=== PATIENT | male | born 1965 | race Caucasian/White ===

== ENCOUNTER 2016-07-13 23:28 | Emergency (ER) | payer BC ==
[~2016-07-13] VITALS: Ht 162.6 cm; Wt 90.7 kg
[~2016-07-13 23:28] MED LIST: DOXY100T2 PO; HYDR-3812 PO
--- OUTSIDE RECORDS SUMMARY | 2016-07-13 23:35 | XMS REPORT | Continuity of Care Document ---
Author Author [facility] Organization [facility] Address Unknown Phone Unavailable Allergies Active Description Code Type Severity Reaction Onset Reported/Identified Relationship to Patient Clinical Status Yes No Known Drug Allergies [id number] Drug Allergy Unknown N/ A 07/09/2015 Medications Problems Date Dx Coded Attending Type Code Diagnosis Diagnosed By 07/10/2015 MARIO GARZA, CYNTHIA Xie Ot F17.210 NICOTINE DEPENDENCE, CIGARETTES, UNCOMPL 07/10/2015 CYNTHIA MARTIN MD Ot L03.115 CELLULITIS OF RIGHT LOWER LIMB 07/10/2015 CYNTHIA MARTIN MD Ot S89.91XA UNSPECIFIED INJURY OF RIGHT LOWER LEG, I 07/10/2015 MARIO GARZA, CYNTHIA Xie Ot V58.4XXA PRSN BRD/JULY PK-UP/VAN INJURED IN NONCL 07/10/2015 CYNTHIA MARTIN MD Ot Y99.8 OTHER EXTERNAL CAUSE STATUS 07/10/2015 CYNTHIA MARTIN MD Ot Z23 ENCOUNTER FOR IMMUNIZATION Procedures Results Encounters ACCT No. Visit Date/Time Discharge Status Pt. Type Provider Facility Loc./Unit Complaint [id number] 07/09/2015 08:59:00 2015 12:12:00 DIS Emergency CYNTHIA MARTIN MD [facility] ER [id number] 07/13/2016 23:31:00 ACT Emergency HANK WOLFE DO [facility] ER CHEST PAIN
--- NOTE | 2016-07-13 23:40 | ED Chest Pain ---
General Stated Complaint: CHEST PAIN Source: patient, RN notes reviewed Exam Limitations: no limitations History of Present Illness Time seen by provider: 23:39 Initial Comments Substernal chest pain radiating to BUE x 2 hours. (+) nausea. Tried Gas X & Ibuprofen 800 mg s/ relief. Also took one baby ASA. Timing/Duration: 1-3 hours Severity/Quality: moderate (7/10), ingestion (???), pressure Location: substernal Radiation: arms Activities at Onset: none Prior CP/Workup: no prior chest pain, no prior cardiac workup Modifying Factors: improves with other (nothing makes the pain better, or worse.) ASA po BOARD LAYER: Yes NTG SL BOARD LAYER: No Associated Symptoms: No fever/chills, heartburn (???), nausea/vomiting ((+) nausea but no vomiting), No shortness of breath Allergies and Home Medications Allergies Coded Allergies: No Known Drug Allergies (Unverified , 07/09/15) Home Medications Ibuprofen 800 Mg Tablet, 800 MG PO DAILY, (Reported) Review of Systems Cardiovascular: See HPI, Chest Pain Gastrointestinal: See HPI, Nausea All Other Systems Reviewed Negative Unless Noted: Yes (Negative excepted noted.) Past Ybprlbp-Wtmndb-Pcdhba Hx Patient Social History Recent Foreign Travel: No Contact w/Someone Who Travel: No Surgeries HX Surgeries: Yes (c spine, shoulder) Surgeries: Appendectomy, Orthopedic Respiratory Hx Respiratory Disorders: No Cardiovascular Hx Cardiac Disorders: Yes Cardiac Disorders: High Cholesterol Neurological Hx Neurological Disorders: No Genitourinary Hx Genitourinary Disorders: No Gastrointestinal Hx Gastrointestinal Disorders: No Musculoskeletal Hx Musculoskeletal Disorders: No Endocrine Hx Endocrine Disorders: No Cancer Hx Cancer: No Psychosocial Hx Psychiatric Problems: No Physical Exam Vital Signs Capillary Refill : General Appearance: No Apparent Distress, WD/WN, Obese Respiratory: No Respiratory Distress Cardiovascular: Regular Rate, Rhythm Gastrointestinal: Tenderness (mild; epigastric) Rectal: Deferred Neurologic/Psychiatric: Alert, Oriented x3, No Motor/Sensory Deficits Skin: Warm/Dry Progress/Results/Core Measures Results/Orders Lab Results Laboratory Tests Test 07/13/16 23:37 Range/Units White Blood Count 8.5 4.3-11.0 10^3/uL Red Blood Count 5.12 4.35-5.85 10^6/uL Hemoglobin 16.2 13.3-17.7 G/DL Hematocrit 45 40-54 % Mean Corpuscular Volume 88 80-99 FL Mean Corpuscular Hemoglobin 32 25-34 PG Mean Corpuscular Hemoglobin Concent 36 32-36 G/DL Red Cell Distribution Width 12.5 10.0-14.5 % Platelet Count 280 130-400 10^3/uL Mean Platelet Volume 9.4 7.4-10.4 FL Neutrophils (%) (Auto) 66 42-75 % Lymphocytes (%) (Auto) 25 12-44 % Monocytes (%) (Auto) 7 0-12 % Eosinophils (%) (Auto) 2 0-10 % Basophils (%) (Auto) 0 0-10 % Neutrophils # (Auto) 5.7 1.8-7.8 X 10^3 Lymphocytes # (Auto) 2.1 1.0-4.0 X 10^3 Monocytes # (Auto) 0.6 0.0-1.0 X 10^3 Eosinophils # (Auto) 0.1 0.0-0.3 10^3/uL Basophils # (Auto) 0.0 0.0-0.1 10^3/uL D-Dimer 0.34 0.00-0.49 UG/ML Sodium Level 137 135-145 MMOL/L Potassium Level 3.7 3.6-5.0 MMOL/L Chloride Level 103 98-107 MMOL/L Carbon Dioxide Level 21 21-32 MMOL/L Anion Gap 13 5-14 MMOL/L Blood Urea Nitrogen 15 7-18 MG/DL Creatinine 0.93 0.60-1.30 MG/DL Estimat Glomerular Filtration Rate > 60 BUN/Creatinine Ratio 16 Glucose Level 119 H 70-105 MG/DL Calcium Level 9.2 8.5-10.1 MG/DL Total Bilirubin 0.4 0.1-1.0 MG/DL Aspartate Amino Transf (AST/SGOT) 34 5-34 U/L Alanine Aminotransferase (ALT/SGPT) 48 0-55 U/L Alkaline Phosphatase 52 40-136 U/L Troponin I < 0.30 <0.30 NG/ML Total Protein 7.1 6.4-8.2 G/DL Albumin 4.3 3.2-4.5 G/DL Lipase 38 8-78 U/L Serum Alcohol 124 H <10 MG/DL My Orders Orders - HANK WOLFE DO Saline Lock/Iv-Start (07/13/16 23:41) Ekg Tracing (07/13/16 23:41) Alcohol (07/13/16 23:41) Cbc With Automated Diff (07/13/16 23:41) Comprehensive Metabolic Panel (07/13/16 23:41) Lipase (07/13/16 23:41) Chest 1 View, Ap/Pa Only (07/13/16 23:41) Fibrin Degradation Products (07/13/16 23:41) Lidocaine 2% Viscous 15 Ml (Xylocaine Vi (07/13/16 23:45) Antacid Suspension (Mylanta Suspension (07/13/16 23:45) Famotidine Injection (Pepcid Injection) (07/13/16 23:44) Troponin I (07/14/16 00:17) Iv Push Instructional Interventionist Ed (07/13/16 ) Medications Given in ED Vital Signs/I&O ECG Initial ECG Impression Date: Jul 13, 2016 Initial ECG Impression Time: 23:37 Initial ECG Rate: 81 Initial ECG Rhythm: Normal Sinus Initial ECG Intervals: Normal Initial ECG Impression: Normal Initial ECG Comparisson: No Previous ECG Available Diagnostic Imaging Diagonstic Imaging: Xray Plain Films/CT/US/NM/MRI: chest (nothing acute) Departure Impression Impression: Primary Impression: Non-cardiac chest pain Additional Impressions: Alcohol intoxication Tobacco abuse Disposition: 01 HOME, SELF-CARE Condition: Improved Departure-Patient Inst. Decision time for Depature: 01:14 Referrals: SWATHI SAUCEDA DO (PCP/Family) Primary Care Physician Patient Instructions: Chest Pain That Is Not Caused by the Heart (DC) Add. Discharge Instructions: RECOMMEND FOLLOW UP WITH YOUR PCP IF CONTINUED PROBLEMS. MAY WANT TO GET YOUR SET UP FOR A STRESS TEST FOR FURTHER EVALUATION. NEED TO STOP SMOKING. HANK WOLFE DO Jul 13, 2016 23:40
[2016-07-13] MEDS ORDERED: FAMOTIDINE 20MG/2ML IV (PEPCID) IV STA (23:44)
[2016-07-13] MEDS ORDERED: LIDOCAINE 2% VISCOUS 15 ML UDC PO ONE (23:45)
[2016-07-13] MEDS ORDERED: ANTACID SUSP 30 ML UDC (MYLANTA) PO ONE (23:45)
[2016-07-13 23:51] LABS: BASOPHILS % (AUTO) 0 % (0-10); EOSINOPHILS # (AUTO) 0.1 10^3/uL (0.0-0.3); EOSINOPHILS % (AUTO) 2 % (0-10); LYMPHOCYTES # (AUTO) 2.1 X 10^3 (1.0-4.0); LYMPHOCYTES % (AUTO) 25 % (12-44); MEAN CORPUSCULAR HEMOGLOBIN 32 PG (25-34); MEAN CORPUSCULAR HGB CONC 36 G/DL (32-36); MEAN CORPUSCULAR VOLUME 88 FL (80-99); MEAN PLATELET VOLUME 9.4 FL (7.4-10.4); MONOCYTES # (AUTO) 0.6 X 10^3 (0.0-1.0); MONOCYTES % (AUTO) 7 % (0-12); NEUTROPHILS # (AUTO) 5.7 X 10^3 (1.8-7.8); NEUTROPHILS % (AUTO) 66 % (42-75); PLATELET COUNT 280 10^3/uL (130-400); RED BLOOD COUNT 5.12 10^6/uL (4.35-5.85); RED CELL DISTRIBUTION WIDTH 12.5 % (10.0-14.5); WHITE BLOOD COUNT 8.5 10^3/uL (4.3-11.0)
[2016-07-14 00:09] LABS: ALANINE AMINOTRANSFERASE 48 U/L (0-55); ALBUMIN 4.3 G/DL (3.2-4.5); ALCOHOL 124 MG/DL (<10); ANION GAP 13 MMOL/L (5-14); ASPARTATE AMINO TRANSFERASE 34 U/L (5-34); BILIRUBIN,TOTAL 0.4 MG/DL (0.1-1.0); BLOOD UREA NITROGEN 15 MG/DL (7-18); BUN/CREATININE RATIO 16; CALCIUM 9.2 MG/DL (8.5-10.1); CARBON DIOXIDE 21 MMOL/L (21-32); CHLORIDE 103 MMOL/L (98-107); CREATININE SERUM 0.93 MG/DL (0.60-1.30); GFR ESTIMATED > 60; GLUCOSE 119 MG/DL (70-105); LIPASE 38 U/L (8-78); POTASSIUM 3.7 MMOL/L (3.6-5.0); SODIUM 137 MMOL/L (135-145); TOTAL PROTEIN 7.1 G/DL (6.4-8.2)
[2016-07-14] MEDS ORDERED: IBUP-1780 PO (00:13)
[2016-07-14 01:26] VITALS: BP 140/95
--- NOTE | 2016-07-14 08:13 | Diagnostic Imaging Report ---
INDICATION: Cough and congestion. Comparison made with prior examination from 12/24/06. FINDINGS: The heart size is normal. There appears to be a minimal infiltrate in medial aspect of the right lung base. There is no pleural effusion or pneumothorax. The mediastinum is unremarkable. IMPRESSION: Minimal infiltrate in medial aspect of the right lung base otherwise unremarkable. Dictated by: Dictated on workstation # [id number]
== END 2016-07-14 01:26 | disposition home or self-care (01) ==
LOC: EDUNIT# 23:28 → ER 23:31
DX: R07.89 Other chest pain (principal); F10.129 Alcohol abuse with intoxication, unspecified; Y90.6 Blood alcohol level of 120-199 mg/100 ml
CPT/HCPCS: 36415; 71010; 80053; 80320; 83690; 84484; 85025; 85379; 93005; 96374

== ENCOUNTER → 2019-01-15 | Outpatient (CLI) | payer BC ==
[~2019-01-15] MED LIST changes: +ACHD5005 PO; -HYDR-3812 PO; +IBUP-1780 PO
--- NOTE | 2019-01-15 16:02 | Diagnostic Imaging Report ---
INDICATION: Increasing pain in the left hand. Time of exam 3:24 p.m. FINDINGS: Three views of the left hand were obtained. There is a punctate opacity in the soft tissues of the thumb at the level of the distal phalanx. This is consistent with a foreign body. Metacarpals appear intact. The phalanges are intact. The carpus is unremarkable. No fractures are seen. IMPRESSION: Punctate foreign body in the soft tissues of the thumb. No acute bony abnormality is detected. Dictated by: Dictated on workstation # [id number]
== END ==
LOC: RAD 15:10
PROVIDERS: ATTEND Family Medicine
DX: M79.645 Pain in left finger(s) (principal); M79.642 Pain in left hand
CPT/HCPCS: 73130

== ENCOUNTER 2019-05-11 12:30 | Outpatient (CLI) | payer BC ==
[~2019-05-11] VITALS: Ht 162.6 cm; Wt 81.8 kg
== END 2019-05-11 13:00 | disposition home or self-care (01) ==
LOC: PREOP 12:30
PROVIDERS: ATTEND Specialist
DX: Z01.818 Encounter for other preprocedural examination (principal)

== ENCOUNTER 2019-05-14 05:53 | Day surgery (SDC) | payer BC ==
[~2019-05-14] VITALS: Ht 162.6 cm; Wt 81.8 kg
[2019-05-14] MEDS ORDERED: POVIDONE (BETADINE) OPHTH SOLN 5% 30 ML OP ONE (06:15)
[2019-05-14] MEDS ORDERED: MOXIFLOXACIN OPHTH SOLN 5 MG/ML 0.3 ML SYRINGE OP ONE (06:15)
[2019-05-14] MEDS ORDERED: TIMOLOL MALEATE 0.5% 5 ML (TIMOPTIC) BTL OU PRN (06:15)
[2019-05-14] MEDS ORDERED: LIDOCAINE PF 1% 2 ML VIAL IR PRN (06:15)
[2019-05-14] MEDS: TETRACAINE 0.5% OPHTH SOLN 4 ML BTL (SINGLE DOSE ONLY) OU PRN ×4 (06:16→06:42)
[2019-05-14 06:21] VITALS: BP 130/91
[2019-05-14] MEDS: PHENYLEPHRINE 10% OPHTH (NEO-SYN) 5 ML BTL OU SCH ×3 (06:30→06:42)
[2019-05-14] MEDS: CYCLOPENTOLATE 1% (CYCLOGYL) 2 ML DROPS OP SCH ×3 (06:30→06:42)
[2019-05-14] MEDS ORDERED: MIDAZOLAM 2 MG/2 ML (VERSED) VIAL ONE (06:48)
[2019-05-14 07:21] VITALS: BP 141/99
[2019-05-14] MEDS ORDERED: acetaZOLAMIDE ER 500 MG CAP (DIAMOX SEQUELS) PO ONE (08:00)
--- NOTE | 2019-05-14 09:36 | Ophthalmologist Pre-Op Note ---
Pre-Operative Progress Note H&P Reviewed The H&P was reviewed, patient examined and no changes noted. Date H&P Reviewed: May 14, 2019 Time H&P Reviewed: 06:55 Pre-Op Dx Cataract, Left Eye RADHA OHARA MD May 14, 2019 09:36
--- NOTE | 2019-05-14 09:36 | Ophthalmology Operative Report ---
Cataract removal/placement IOL PREOPERATIVE DIAGNOSIS: Cataract Left Eye POSTOPERATIVE DIAGNOSIS: Cataract Left Eye PROCEDURE: Cataract removal and placement of posterior chamber implant, left eye SURGEON: John Ohara ANESTHESIA: Topical with sedation COMPLICATIONS: None ESTIMATED BLOOD LOSS: Minimal DESCRIPTION OF PROCEDURE: After proper informed consent was obtained, the patient, a 53 male, was taken to the Operating Room and the left eye was anesthetized with tetracaine. The left eye was then prepped and draped in the usual manner. A wire lid speculum was placed. A paracentesis was made at the left hand position. Preservative free lidocaine was injected into the anterior chamber followed by viscoelastic. A clear corneal incision was made in the temporal position. A capsulorrhexis was preformed and the central nuclear and cortical material were removed. The posterior capsule was polished and an Pramod 21.5 AU00T0 was placed into the capsular bag. The residual viscoelastic was aspirated and balanced saline solution was injected into the anterior chamber. Moxifloxacin was injected into the anterior chamber. The wound was checked and found to be water tight. The patient tolerated the procedure well without complications. JOHN OHARA MD May 14, 2019 09:36
--- NOTE | 2019-05-14 11:07 | Anesthesia-General Post-Op ---
MAC Patient Condition Mental Status/LOC: Same as Preop Cardiovascular: Satisfactory Nausea/Vomiting: Absent Respiratory: Satisfactory Pain: Controlled Complications: Absent Post Op Complications Complications None Follow Up Care/Instructions Patient Instructions None needed. Anesthesiology Discharge Order Discharge Order Patient was seen this morning after the procedure and he was doing well, no complaints, stable vital signs, no apparent adverse anesthesia problems. XENIA SALAZAR DO May 14, 2019 11:07
== END 2019-05-14 07:20 | disposition home or self-care (01) ==
LOC: SDC 05:53
PROVIDERS: ATTEND Specialist
DX: E11.40 Type 2 diabetes mellitus with diabetic neuropathy, unspecified (principal); H25.12 Age-related nuclear cataract, left eye; I10 Essential (primary) hypertension; M19.90 Unspecified osteoarthritis, unspecified site; G47.00 Insomnia, unspecified; F41.9 Anxiety disorder, unspecified; F17.200 Nicotine dependence, unspecified, uncomplicated; Z79.899 Other long term (current) drug therapy; Z90.89 Acquired absence of other organs

== ENCOUNTER 2019-05-25 05:34 | Outpatient (CLI) | payer BC ==
[~2019-05-25] VITALS: Ht 162 cm; Wt 81.8 kg
== END 2019-05-25 15:31 | disposition home or self-care (01) ==
LOC: PREOP 05:34
PROVIDERS: ATTEND Specialist
DX: Z01.818 Encounter for other preprocedural examination (principal)

== ENCOUNTER 2019-05-28 06:02 | Day surgery (SDC) | payer BC ==
[~2019-05-28] VITALS: Ht 162 cm; Wt 81.8 kg
[2019-05-28 06:12] VITALS: BP 125/98
[2019-05-28] MEDS ORDERED: MOXIFLOXACIN OPHTH SOLN 5 MG/ML 0.3 ML SYRINGE OP ONE (06:15)
[2019-05-28] MEDS ORDERED: LIDOCAINE PF 1% 2 ML VIAL IR PRN (06:15)
[2019-05-28] MEDS ORDERED: TIMOLOL MALEATE 0.5% 5 ML (TIMOPTIC) BTL OU PRN (06:15)
[2019-05-28] MEDS ORDERED: POVIDONE (BETADINE) OPHTH SOLN 5% 30 ML OP ONE (06:15)
[2019-05-28] MEDS: TETRACAINE 0.5% OPHTH SOLN 4 ML BTL (SINGLE DOSE ONLY) OU PRN ×4 (06:16→06:39)
[2019-05-28] MEDS: CYCLOPENTOLATE 1% (CYCLOGYL) 2 ML DROPS OP SCH ×3 (06:26→06:39)
[2019-05-28] MEDS: PHENYLEPHRINE 10% OPHTH (NEO-SYN) 5 ML BTL OU SCH ×3 (06:26→06:39)
[2019-05-28] MEDS ORDERED: MIDAZOLAM 2 MG/2 ML (VERSED) VIAL ONE (07:25)
[2019-05-28 07:52] VITALS: BP 122/77
[2019-05-28] MEDS ORDERED: acetaZOLAMIDE ER 500 MG CAP (DIAMOX SEQUELS) PO ONE (08:00)
--- NOTE | 2019-05-28 09:26 | Ophthalmologist Pre-Op Note ---
Pre-Operative Progress Note H&P Reviewed The H&P was reviewed, patient examined and no changes noted. Date H&P Reviewed: May 28, 2019 Time H&P Reviewed: 07:22 Pre-Op Dx Cataract, Right Eye RADHA OHARA MD May 28, 2019 09:26
--- NOTE | 2019-05-28 09:27 | Ophthalmology Operative Report ---
Cataract removal/placement IOL PREOPERATIVE DIAGNOSIS: Cataract Right Eye POSTOPERATIVE DIAGNOSIS: Cataract Right Eye PROCEDURE: Cataract removal and placement of posterior chamber implant, right eye SURGEON: John Ohara ANESTHESIA: Topical with sedation COMPLICATIONS: None ESTIMATED BLOOD LOSS: Minimal DESCRIPTION OF PROCEDURE: After proper informed consent was obtained, the patient, a 54 male, was taken to the Operating Room and the right eye was anesthetized with tetracaine. The right eye was then prepped and draped in the usual manner. A wire lid speculum was placed. A paracentesis was made at the left hand position. Preservative free lidocaine was injected into the anterior chamber followed by viscoelastic. A clear corneal incision was made in the temporal position. A capsulorrhexis was preformed and the central nuclear and cortical material were removed. The posterior capsule was polished and Pramod 21.0 AU00T0 IOL was placed into the capsular bag. The residual viscoelastic was aspirated and balanced saline solution was injected into the anterior chamber. Moxifloxacin was injected into the anterior chamber. The wound was checked and found to be water tight. The patient tolerated the procedure well without complications. JOHN OHARA MD May 28, 2019 09:27
--- NOTE | 2019-05-28 15:06 | Anesthesia-General Post-Op ---
MAC Patient Condition Mental Status/LOC: Same as Preop Cardiovascular: Satisfactory Nausea/Vomiting: Absent Respiratory: Satisfactory Pain: Controlled Complications: Absent Post Op Complications Complications None Follow Up Care/Instructions Patient Instructions None needed. Anesthesiology Discharge Order Discharge Order Patient is doing well, no complaints, stable vital signs, no apparent adverse anesthesia problems. No complications reported per nursing. ARAM CARRIZALES CRNA May 28, 2019 15:06
== END 2019-05-28 07:52 | disposition home or self-care (01) ==
LOC: SDC 06:02
PROVIDERS: ATTEND Specialist
DX: H25.11 Age-related nuclear cataract, right eye (principal); H40.9 Unspecified glaucoma; G47.00 Insomnia, unspecified; I10 Essential (primary) hypertension; G62.9 Polyneuropathy, unspecified; M19.90 Unspecified osteoarthritis, unspecified site; F41.9 Anxiety disorder, unspecified; F17.210 Nicotine dependence, cigarettes, uncomplicated; Z79.899 Other long term (current) drug therapy; Z90.89 Acquired absence of other organs

== ENCOUNTER → 2021-01-05 | Outpatient (CLI) | payer BC ==
--- NOTE | 2021-01-05 09:51 | Diagnostic Imaging Report ---
PROCEDURE: CT head without contrast. TECHNIQUE: Multiple contiguous axial images were obtained through the brain without the use of intravenous contrast. Auto Exposure Controls were utilized during the CT exam to meet ALARA standards for radiation dose reduction. INDICATION: Head injury and headache. No prior studies are available for comparison. Ventricles and sulci are within normal limits. No sulcal effacement or midline shift is identified. No acute intra-axial or extra-axial hemorrhage is detected. Cisterns are patent. Visualized paranasal sinuses are clear. IMPRESSION: No acute intracranial process is detected. Dictated by: Dictated on workstation # [id number]
== END ==
LOC: RAD 09:00
PROVIDERS: ATTEND Family Medicine
DX: S09.90XA Unspecified injury of head, initial encounter (principal); X58.XXXA Exposure to other specified factors, initial encounter
CPT/HCPCS: 70450

== ENCOUNTER 2021-10-16 08:10 | Emergency (ER) | payer BC ==
[~2021-10-16] VITALS: Ht 165 cm; Wt 91.0 kg
--- NOTE | 2021-10-16 08:25 | ED Back Pain ---
General Chief Complaint: Upper Extremity Stated Complaint: BACK PAIN Source of Information: Patient Exam Limitations: No Limitations History of Present Illness Date Seen by Provider: Oct 16, 2021 Time Seen by Provider: 08:10 Initial Comments Patient ER by private conveyance chief complaint of a week aggravated pain in the left side of his upper thoracic spine radiating towards his shoulder and up into his neck. No trauma. He has 2 histories of surgeries on his neck. No falls. No numbness or tingling. No weakness or dropping things with his arms. He is typically right-handed. 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 He has been using ibuprofen [address] Sauceda to try and get in but it would not be for a week or so. Allergies and Home Medications Allergies Coded Allergies: No Known Drug Allergies (Unverified , 07/09/15) Patient Home Medication List Home Medication List Reviewed: Yes Ibuprofen (Ibuprofen) 800 Mg Tablet, 800 MG PO TID PRN for PAIN-MILD (1-4), (Reported) Entered as Reported by: ALEX PORTILLO on 07/14/16 0013 Review of Systems Constitutional: No chills, No diaphoresis EENTM: No ear discharge, No hearing loss Respiratory: No cough, No short of breath Cardiovascular: No chest pain, No palpitations Gastrointestinal: No abdominal pain, No constipation, No diarrhea Genitourinary: No dysuria, No frequency Musculoskeletal: No back pain, No joint pain All Other Systems Reviewed Negative Unless Noted: Yes Past Crmncfd-Ltsspz-Ljdmix Hx Patient Social History Tobacco Use?: Yes Tobacco type used: Cigarettes Smoking Status: Current Everyday Smoker Use of E-Cig and/or Vaping dev: No Past Medical History Appendectomy, Orthopedic High Cholesterol Reproductive Disorders: No Physical Exam Vital Signs Vital Signs - First Documented 10/16/21 08:10 Temp 36.0 Pulse 84 Resp 18 B/P (MAP) 143/108 (120) Pulse Ox 98 O2 Delivery Room Air Capillary Refill : Height, Weight, BMI Height: 5'4" Weight: 200lbs. oz. 90.340396zq; 33.47 BMI Method:Stated General Appearance: No Apparent Distress, WD/WN HEENT: PERRL/EOMI, Pharynx Normal, Moist Mucous Membranes Neck: Full Range of Motion, Normal Inspection Cardiovascular: Regular Rate, Rhythm, Normal Peripheral Pulses Respiratory: No Accessory Muscle Use, No Respiratory Distress Back: Normal Inspection, No Vertebral Tenderness, Muscle Spasm (Left trapezius parathoracic muscles) Neurologic/Psychiatric: Alert, Oriented x3 Procedures/Interventions Progress Tender point injection left trapezius at the level of T2 and T3 lateral about 3 cm Lidocaine 2% with epinephrine 1 cc and 1 cc of Depo-Medrol 40 mg/mL. Clean the site with chlorhexidine used a track method and injected using a 25- gauge 1-1/2 inch needle. Did not aspirate any blood. Patient tolerated procedure well. Sterile bandage placed Progress/Results/Core Measures Results/Orders My Orders Orders - ROOSEVELT RAMIREZ Lidocaine/Epi 2% 1:100,000 (Xylocaine/Ep (10/16/21 08:30) Methylprednisolone Acetate Inj (Depo-Med (10/16/21 08:30) Medications Given in ED Current Medications Medications Dose Ordered Sig/Des Route Start Time Stop Time Status Last Admin Dose Admin Lidocaine/ Epinephrine 20 ml ONCE ONCE INJ 10/16/21 08:30 10/16/21 08:31 DC 10/16/21 08:44 1 ML Methylprednisolone Acetate 40 mg ONCE ONCE IM 10/16/21 08:30 10/16/21 08:31 DC 10/16/21 08:44 40 MG Vital Signs/I&O 10/16/21 08:10 Temp 36.0 Pulse 84 Resp 18 B/P (MAP) 143/108 (120) Pulse Ox 98 O2 Delivery Room Air Departure Impression Primary Impression: Thoracic radiculopathy Disposition: HOME, SELF-CARE Condition: Stable Departure-Patient Inst. Decision time for Depature: 08:50 Referrals: SWATHI SAUCEDA DO (PCP/Family) Primary Care Physician Patient Instructions: Radiculopathy (DC) Add. Discharge Instructions: acid supervisor the Medrol Dosepak and take as prescribed. Ibuprofen 800 mg every 8 hours on a schedule. Tylenol 1000 mg every 8 hours as needed for pain. Continue to use topical creams, lidocaine patches etc. as necessary. Follow-up in 1 to 2 weeks with your primary care provider if you are not seeing some improvement. Speak to [facility] physical therapy by calling [phone] and request follow- up appointment. Cyclobenzaprine/Flexeril 1 tablet every 8 hours as necessary for muscle spasms in your neck and back region. Will cause drowsiness. All discharge instructions reviewed with patient and/or family. Voiced understanding. Scripts Cyclobenzaprine HCl (Cyclobenzaprine HCl) 10 Mg Tablet 10 MG PO Q8H PRN for SPASMS, #20 TAB 0 Refills Prov: ROOSEVELT RAMIREZ 10/16/21 Methylprednisolone (Methylprednisolone Dose Pack) 4 Mg Tab.ds.pk 4 MG PO UD for 6 Days, #21 PKG PER DOSE PACK INSTRUCTIONS Prov: ROOSEVELT RAMIREZ 10/16/21 Copy Copies To 1: SWATHI SAUCEDA DO ROOSEVELT RAMIREZ Oct 16, 2021 08:25
[2021-10-16] MEDS ORDERED: methylPREDNISolone 40 MG/ML (DEPO MEDROL) VIAL IM ONE (08:30)
[2021-10-16] MEDS ORDERED: LIDOCAINE/EPI 2% 1:100,00 (XYLOCAINE) 20 ML VIAL INJ ONE (08:30)
[2021-10-16] MEDS ORDERED: CYCL10TA25 PO (08:52)
[2021-10-16] MEDS ORDERED: METH4TAB10 PO (08:52)
[2021-10-16 09:07] VITALS: BP 137/100
== END 2021-10-16 09:09 | disposition home or self-care (01) ==
LOC: EDUNIT# 08:10 → ER 08:12
DX: M54.14 Radiculopathy, thoracic region (principal); F17.210 Nicotine dependence, cigarettes, uncomplicated
CPT/HCPCS: 99281

== ENCOUNTER 2022-01-09 08:51 | Emergency (ER) | payer BC ==
[~2022-01-09 08:51] MED LIST changes: +CYCL10TA25 PO; +METH4TAB10 PO
--- NOTE | 2022-01-09 09:31 | ED Lower Extremity ---
General Chief Complaint: Lower Extremity Stated Complaint: PAIN IN RT LEG Source: patient Exam Limitations: no limitations History of Present Illness Date Seen by Provider: Jan 09, 2022 Time Seen by Provider: 08:56 Initial Comments 56-year-old male with no pertinent past medical history coming in due to a right hamstring injury. Yesterday at work something heavy glanced off his back and it made him bend over rapidly and go to the ground. He felt a pop in his right hamstring and has had pain since then. He is able to walk but it is difficult. The pain is constant, throbbing, moderate, worse with movement, better with rest. Denies any numbness or head injury. He is otherwise denying any other acute complaints Allergies and Home Medications Allergies Coded Allergies: No Known Drug Allergies (Unverified , 07/09/15) Patient Home Medication List Home Medication List Reviewed: Yes Cyclobenzaprine HCl (Cyclobenzaprine HCl) 10 Mg Tablet, 10 MG PO Q8H PRN for SPASMS Prescribed by: ROOSEVELT RAMIREZ on 10/16/21 0852 Ibuprofen (Ibuprofen) 800 Mg Tablet, 800 MG PO TID PRN for PAIN-MILD (1-4), (Reported) Entered as Reported by: ALEX PORTILLO on 07/14/16 0013 Methylprednisolone (Methylprednisolone Dose Pack) 4 Mg Tab.ds.pk, 4 MG PO UD Prescribed by: ROOSEVELT RAMIREZ on 10/16/21 0852 Review of Systems Constitutional: No fever EENTM: No blurred vision Respiratory: no symptoms reported Cardiovascular: no symptoms reported Gastrointestinal: no symptoms reported Genitourinary: no symptoms reported Musculoskeletal: see HPI Skin: no symptoms reported Psychiatric/Neurological: No Symptoms Reported All Other Systems Reviewed Negative Unless Noted: Yes Past Pjjrcpa-Scojfv-Kuolhb Hx Patient Social History Tobacco Use?: Yes Tobacco type used: Cigarettes Smoking Status: Current Everyday Smoker Substance use?: No Alcohol Use?: Yes Alcohol type: Beer Pt feels they are or have been: No Immunizations Up To Date Influenza Vaccine Up-to-Date: No; Not Current First/Initial COVID19 Vaccinat: 2020 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 oz. 90.621327kp; 33.00 BMI Method:Stated General Appearance: WD/WN, no apparent distress HEENT: PERRL/EOMI, normal ENT inspection, pharynx normal Neck: non-tender, full range of motion, supple, normal inspection Cardiovascular: regular rate, rhythm, no edema, no murmur Respiratory: chest non-tender, lungs clear, normal breath sounds, no respiratory distress, no accessory muscle use Gastrointestinal: normal bowel sounds, non tender, soft; No rebound Hips: bilateral hip non-tender, bilateral hip normal inspection, bilateral hip normal range of motion, bilateral hip no evidence of injury; right hip other (Tender along the hamstring proximally with no bruising or swelling noted, 4+ out of 5 strength with knee flexion on the right compared to the left, 4 out of 5 strength with hip extension with a straight leg on the right, no palpable defect felt, normal distal pulses and sensation) Knees: bilateral knee non-tender, bilateral knee normal inspection, bilateral knee normal range of motion, bilateral knee no evidence of injury Neurologic/Tendon: normal sensation, normal motor functions, normal tendon functions Neurologic/Psychiatric: no motor/sensory deficits, alert, normal mood/affect Skin: normal color, warm/dry Lymphatic: no adenopathy Progress/Results/Core Measures Progress Progress Note : Progress Note 56-year-old male with above history coming in due to right hamstring injury that happened at work. ABCs were intact and vitals are stable on presentation. Physical exam with no bruising or swelling as of yet, but it is possible this was too early. He does have weakness when testing the hamstring specifically, with 4+ out of 5 strength with knee flexion and 4 out of 5 strength with hip extension compared to the left side. Does have an antalgic gait but is able to walk. Clinically he has a hamstring injury and I will refer him to orthopedics. Departure Impression Primary Impression: Hamstring injury Qualified Codes: S76.301A - Unspecified injury of muscle, fascia and tendon of the posterior muscle group at thigh level, right thigh, initial encounter Disposition: 01 HOME, SELF-CARE Condition: Stable Departure-Patient Inst. Decision time for Depature: 09:30 Referrals: SWATHI SAUCEDA DO (PCP/Family) Primary Care Physician Patient Instructions: Hamstring Injury Add. Discharge Instructions: Is likely a portion of your hamstring is torn. Follow-up with Dr. Cardozo or an orthopedic surgeon of your preference to see how they would like to treat this. I recommend resting it, ibuprofen and/or Tylenol, ice, and you can try sitting on a donut pillow for pain. You may develop bruising that will go down her leg and swelling as well. Work/School Note: Work Release Form Date Seen in the Emergency Department: Jan 09, 2022 Return to Work: Jan 11, 2022 Restrictions: Need Release from Doctor REINA PEREZ MD Jan 09, 2022 09:31
[2022-01-09 09:46] VITALS: BP 138/55
== END 2022-01-09 09:46 | disposition home or self-care (01) ==
LOC: EDUNIT# 08:51 → ER 08:56
DX: S76.301A Unspecified injury of muscle, fascia and tendon of the posterior muscle group at thigh level, right thigh, initial encounter (principal); F17.210 Nicotine dependence, cigarettes, uncomplicated; X50.1XXA Overexertion from prolonged static or awkward postures, initial encounter
CPT/HCPCS: 99281

== ENCOUNTER 2022-10-05 11:28 | Emergency (ER) | payer BC ==
[~2022-10-05] VITALS: Ht 165.1 cm; Wt 86.2 kg
--- NOTE | 2022-10-05 12:24 | ED General ---
General Chief Complaint: Dizziness/Syncope Stated Complaint: DIZZY/ EARS RINGING/BACK PAIN Nursing Triage Note: PT AMBUALTE TO ROOM 02 WITHOUT DIFFICULTY WITH C/O DIZZYNESS, LIGHTHEADED, AND LEFT LOWER BACK PAIN. Source of Information: Patient Exam Limitations: No Limitations History of Present Illness Date Seen by Provider: October 05, 2022 Time Seen by Provider: 12:24 Initial Comments Patient is a 57-year-old male who presents to the emergency room with a chief complaint of feeling dizzy, a little lightheaded and having a little ringing in his ears onset around 930 this morning. He also states while sitting he had sudden onset of left-sided low back/flank pain. Patient states that he took 2 [id number] "pain relievers" without much improvement of the flank pain. He currently rates it at a "4 or 5". Taking a deep breath and getting into a certain position seem to intensify the pain. He states the dizziness has resolved on my evaluation. He denied headache, speech or swallowing difficulties. No unilateral numbness, weakness or tingling. No chest pain or s hortness of breath. He does drink about 10 beers a day. He did drink quite a bit last night. He also works outside as a client service executive. No recent illnesses, fevers, chills, GI symptoms. He states he drinks about 8 bottles of water a day while he is working. He does not take any daily medications. He states that Dr. Sauceda has been telling him that he needs to be on blood pressure pills. His blood pressure is noted to be elevated with a diastolic over 100. He is not tachycardic or hypoxic. States he has been urinating normally. No history of kidney stone. He does smoke. Timing/Duration: 1-3 Hours Severity: Moderate Modifying Factors: worse with Movement Associated Systoms: Denies Symptoms Allergies and Home Medications Allergies Coded Allergies: No Known Drug Allergies (Unverified , 07/09/15) Patient Home Medication List Home Medication List Reviewed: Yes Cyclobenzaprine HCl (Cyclobenzaprine HCl) 10 Mg Tablet, 10 MG PO Q8H PRN for SPA SMS Prescribed by: ROOSEVELT RAMIREZ on 10/16/21 0852 Ibuprofen (Ibuprofen) 800 Mg Tablet, 800 MG PO TID PRN for PAIN-MILD (1-4), (Reported) Entered as Reported by: ALEX PORTILLO on 07/14/16 0013 Methylprednisolone (Methylprednisolone Dose Pack) 4 Mg Tab.ds.pk, 4 MG PO UD Prescribed by: ROOSEVELT RAMIREZ on 10/16/21 0852 Review of Systems Review of Systems Constitutional: see HPI EENTM: other (Ears ringing) Respiratory: no symptoms reported Cardiovascular: no symptoms reported Gastrointestinal: no symptoms reported Genitourinary: no symptoms reported Musculoskeletal: back pain Skin: no symptoms reported Psychiatric/Neurological: Other (Dizzy/lightheaded) All Other Systems Reviewed Negative Unless Noted: Yes Past Vxwvgsm-Byswmi-Medwfr Hx Patient Social History Tobacco Use?: Yes Tobacco type used: Cigarettes Smoking Status: Heavy Tobacco Smoker Smokeless Tobacco Frequency: Current Everyday User Use of E-Cig and/or Vaping dev: No Use of E-Cig and/or Vaping Marshal: Never a User Substance use?: No Alcohol Use?: Yes Alcohol type: Beer Alcohol Frequency: Daily Pt feels they are or have been: No Immunizations Up To Date First/Initial COVID19 Vaccinat: GIANCARLO Past Medical History Surgery/Hospitalization HX: DENIES SHOULDER, ARM, NECK, APPY Surgeries: Yes Appendectomy, Orthopedic High Cholesterol Reproductive Disorders: No Physical Exam Vital Signs Vital Signs - First Documented 10/05/22 12:01 Temp 35.5 Pulse 75 Resp 19 B/P (MAP) 171/104 (126) O2 Delivery Room Air Capillary Refill : Less Than 3 Seconds Height, Weight, BMI Height: 5'4" Weight: 200lbs. oz. 90.879326xo; 31.00 BMI Method:Stated General Appearance: No Apparent Distress, WD/WN Eyes: Bilateral Eye Normal Inspection, Bilateral Eye PERRL, Bilateral Eye EOMI HEENT: PERRL/EOMI, TMs Normal, Pharynx Normal, Moist Mucous Membranes Neck: Supple Respiratory: Lungs Clear, Normal Breath Sounds, No Accessory Muscle Use, No Respiratory Distress Cardiovascular: Regular Rate, Rhythm, Normal Peripheral Pulses Gastrointestinal: Non Tender, Soft Back: Normal Inspection, Other (Slight paraspinous tenderness left low CVA. No overlying rashes. No swelling. 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) Neurologic/Psychiatric: Alert, Oriented x3, No Motor/Sensory Deficits, Normal Mood/Affect, investigator operator II-XII Norm as Tested Skin: Normal Color, Warm/Dry Progress/Results/Core Measures Suspected Sepsis SIRS Temperature: Pulse: 75 Respiratory Rate: 19 Laboratory Tests 10/05/22 12:13: White Blood Count 7.8 Blood Pressure 171 /104 Mean: 126 Laboratory Tests 10/05/22 12:13: Creatinine 0.80, Platelet Count 274 Results/Orders Lab Results Laboratory Tests Test 10/05/22 12:13 10/05/22 12:44 Range/Units White Blood Count 7.8 4.3-11.0 10^3/uL Red Blood Count 5.02 4.30-5.52 10^6/uL Hemoglobin 16.3 13.3-17.7 g/dL Hematocrit 45 40-54 % Mean Corpuscular Volume 90 80-99 fL Mean Corpuscular Hemoglobin 33 25-34 pg Mean Corpuscular Hemoglobin Concent 36 32-36 g/dL Red Cell Distribution Width 12.2 10.0-14.5 % Platelet Count 274 130-400 10^3/uL Mean Platelet Volume 9.0 9.0-12.2 fL Immature Granulocyte % (Auto) 0 % Neutrophils (%) (Auto) 65 42-75 % Lymphocytes (%) (Auto) 25 12-44 % Monocytes (%) (Auto) 7 0-12 % Eosinophils (%) (Auto) 3 0-10 % Basophils (%) (Auto) 1 0-10 % Neutrophils # (Auto) 5.0 1.8-7.8 10^3/uL Lymphocytes # (Auto) 1.9 1.0-4.0 10^3/uL Monocytes # (Auto) 0.5 0.0-1.0 10^3/uL Eosinophils # (Auto) 0.2 0.0-0.3 10^3/uL Basophils # (Auto) 0.1 0.0-0.1 10^3/uL Immature Granulocyte # (Auto) 0.0 0.0-0.1 10^3/uL Sodium Level 137 135-145 MMOL/L Potassium Level 4.3 3.6-5.0 MMOL/L Chloride Level 105 98-107 MMOL/L Carbon Dioxide Level 22 21-32 MMOL/L Anion Gap 10 5-14 MMOL/L Blood Urea Nitrogen 8 7-18 MG/DL Creatinine 0.80 0.60-1.30 MG/DL Estimat Glomerular Filtration Rate 104 BUN/Creatinine Ratio 10 Glucose Level 84 70-105 MG/DL Calcium Level 9.3 8.5-10.1 MG/DL Urine Color YELLOW Urine Clarity CLEAR Urine pH 6.0 5-9 Urine Specific Haiku 1.010 L 1.016-1.022 Urine Protein NEGATIVE NEGATIVE Urine Glucose (UA) NEGATIVE NEGATIVE Urine Ketones NEGATIVE NEGATIVE Urine Nitrite NEGATIVE NEGATIVE Urine Bilirubin NEGATIVE NEGATIVE Urine Urobilinogen 1.0 < = 1.0 MG/DL Urine Leukocyte Esterase NEGATIVE NEGATIVE Urine RBC (Auto) NEGATIVE NEGATIVE Urine RBC NONE /HPF Urine WBC NONE /HPF Urine Squamous Epithelial Cells RARE /HPF Urine Crystals NONE /LPF Urine Bacteria NEGATIVE /HPF Urine Casts NONE /LPF Urine Mucus NEGATIVE /LPF Urine Culture Indicated NO My Orders Orders - TRIPP CHINCHILLA MD Ed Iv/Invasive Line Start (10/05/22 12:34) Cbc With Automated Diff (10/05/22 12:34) Basic Metabolic Panel (10/05/22 12:34) Urinalysis (10/05/22 12:34) Ns Iv 1000 Ml (Sodium Chloride 0.9%) (10/05/22 12:45) Ketorolac Injection (Toradol Injection) (10/05/22 12:45) Medications Given in ED Current Medications Medications Dose Ordered Sig/Des Route Start Time Stop Time Status Last Admin Dose Admin Ketorolac Tromethamine 15 mg ONCE ONCE IVP 10/05/22 12:45 10/05/22 12:46 DC 10/05/22 12:40 15 MG Vital Signs/I&O 10/05/22 12:01 Temp 35.5 Pulse 75 Resp 19 B/P (MAP) 171/104 (126) O2 Delivery Room Air Capillary Refill : Less Than 3 Seconds Blood Pressure Mean: 126 Progress Note : Time: 13:39 Progress Note Patient seen and evaluated by me. Evaluation today includes physical exam, CBC, chemistry, urinalysis. Pertinent physical exam findings well-developed well- nourished slightly flushed appearing 57-year-old male in no acute distress. HEENT exam is completely normal. Heart is regular, lungs are clear. He does have a little palpable reproducible tenderness to the left flank/low back. No overlying rashes. Abdominal exam is benign. No lower extremity edema. No focal neurologic deficits are noted. He is slightly hypertensive with diastolic greater than 100. Not tachycardic, not hypoxic. Differential diagnosis based on history and physical exam, dehydration, kidney stone, urinary tract infection. Labs seen and interpreted by me. CBC is completely normal, chemistry is completely normal, urinalysis is negative for infection/blood. Patient was treated in the emergency room with 15 mg of Toradol IV. He continues to state that his dizziness/lightheadedness has completely resolved. He does still feel a little bit of discomfort in his left flank. He states he is totally comfortable going home and that he "just got scared" because a friend of his from a heart attack after complaining of only back pain. I advised the patient that there is a small percentage of patients that will have kidney stones that do not show blood in the urine. I advised that if he has trouble urinating or notices blood in his urine or has worsening pain he needs to come back to the emergency department. I recommended increasing oral fluids and decreasing alcohol use. I have recommended smoking cessation. He is also advised to follow-up with Dr. May on Friday of next week as Friday is a holiday for blood pressure management. He verbalizes understanding and is agreeable with the plan of care. Drink plenty of fluids to stay well hydrated. Return precautions given in both verbal and written format. Departure Impression Primary Impression: Lt flank pain Additional Impressions: Elevated blood pressure reading Dizziness, nonspecific Disposition: 01 HOME, SELF-CARE Condition: Improved Departure-Patient Inst. Decision time for Depature: 13:34 Referrals: SWATHI SAUCEDA DO (PCP/Family) Primary Care Physician Patient Instructions: High Blood Pressure (DC), Dizziness, Adult ED Add. Discharge Instructions: Continue to drink plenty of fluids to stay well-hydrated. If the pain in your left side/back gets worse, if you become nauseated or sweaty with it or have problems urinating or blood in your urine please return to the emergency department for reevaluation. You might try an [id number]-otn-[id number] lidocaine patch to the area that is sore, this may help relieve some of the discomfort in your back. Please follow-up with Dr. Sauceda on Friday for your blood pressure. I think it may be time for you to start on blood pressure medications. Return to the emergency department for any new, concerning or emergent complaints. Copy Copies To 1: SWATHI SAUCEDA KATHRYN M MD October 05, 2022 12:24
[2022-10-05 12:42] LABS: BASOPHILS # (AUTO) 0.1 10^3/uL (0.0-0.1); BASOPHILS % (AUTO) 1 % (0-10); EOSINOPHILS # (AUTO) 0.2 10^3/uL (0.0-0.3); EOSINOPHILS % (AUTO) 3 % (0-10); HEMATOCRIT 45 % (40-54); HEMOGLOBIN 16.3 g/dL (13.3-17.7); LYMPHOCYTES # (AUTO) 1.9 10^3/uL (1.0-4.0); LYMPHOCYTES % (AUTO) 25 % (12-44); MEAN CORPUSCULAR HEMOGLOBIN 33 pg (25-34); MEAN CORPUSCULAR HGB CONC 36 g/dL (32-36); MEAN CORPUSCULAR VOLUME 90 fL (80-99); MONOCYTES # (AUTO) 0.5 10^3/uL (0.0-1.0); MONOCYTES % (AUTO) 7 % (0-12); NEUTROPHILS % (AUTO) 65 % (42-75); PLATELET COUNT 274 10^3/uL (130-400); WHITE BLOOD COUNT 7.8 10^3/uL (4.3-11.0)
[2022-10-05 12:44] LABS: POTASSIUM 4.3 MMOL/L (3.6-5.0)
[2022-10-05 12:45] LABS: CALCIUM 9.3 MG/DL (8.5-10.1)
[2022-10-05] MEDS ORDERED: KETOROLAC 15 MG/ML VIAL IVP ONE (12:45)
[2022-10-05] MEDS ORDERED: NS IV 1000 ML 1,000 ML IV SCH (12:45)
[2022-10-05 12:49] LABS: CREATININE SERUM 0.8 MG/DL (0.60-1.30)
[2022-10-05 12:56] LABS: BILIRUBIN,URINE NEGATIVE (NEGATIVE); CLARITY,URINE CLEAR; COLOR,URINE YELLOW; GLUCOSE, URINE (UA) NEGATIVE (NEGATIVE); KETONES,URINE NEGATIVE (NEGATIVE); LEUKOCYTE ESTERASE ,URINE NEGATIVE (NEGATIVE); NITRITE,URINE NEGATIVE (NEGATIVE); PROTEIN,URINE NEGATIVE (NEGATIVE)
[2022-10-05 13:05] LABS: BACTERIA,URINE NEGATIVE /HPF; SQUAMOUS EPITHELIAL CELL,UR RARE /HPF
[2022-10-05 13:42] VITALS: BP 157/94
== END 2022-10-05 13:42 | disposition home or self-care (01) ==
LOC: EDUNIT# 11:28 → ER 11:30
DX: R10.9 Unspecified abdominal pain (principal); R03.0 Elevated blood-pressure reading, without diagnosis of hypertension; R42 Dizziness and giddiness; M54.50 Low back pain, unspecified; F17.210 Nicotine dependence, cigarettes, uncomplicated; Z28.311 Partially vaccinated for COVID-19; Z90.49 Acquired absence of other specified parts of digestive tract
CPT/HCPCS: 36415; 80048; 81000; 85025

== ENCOUNTER → 2022-10-16 | Outpatient (CLI) | payer BC ==
--- NOTE | 2022-10-16 10:40 | Diagnostic Imaging Report ---
PROCEDURE: MR imaging cervical spine without contrast. TECHNIQUE: Multiplanar, multisequence MR imaging of the cervical spine was performed without contrast. INDICATION: Radiculopathy of the right fingers. COMPARISON: None FINDINGS: There is anterior fusion of the cervical spine from C3 down to C7. Vertebral bodies are markedly obscured by the hardware. There are multilevel disc spacers. There may be bone bridging across C4-C5. Soft tissues about the cervical spine demonstrate no acute abnormality. There is a narrow spinal canal with flattening of the cord. There is a focal area of increased T2 hyperintensity in the right central cord at the C3-C4 level (image 12 series 6). There are also 2 small focal areas of T2 hyperintensity (image 15 series 6). There is a focal area of T2 hyperintensity in the left central cord at the C6-C7 level (image 24 series 6). C2-C3: Posterior osteophytes. Mild spinal canal narrowing and mild bilateral foraminal narrowing. C3-C4: Posterior osteophytes. Severe spinal canal stenosis with severe right and moderate left foraminal stenosis. C4-C5: Posterior osteophytes with severe spinal canal stenosis and flattening of the cord. Moderate bilateral foraminal stenosis. C5-C6: Posterior osteophytes. Moderate to severe spinal canal stenosis. Severe bilateral foraminal stenosis. C6-C7: Posterior osteophytes with severe spinal canal stenosis. Severe bilateral foraminal stenosis. C7-T1: Mild posterior disc osteophyte complex. Mild spinal canal narrowing. Mild bilateral foraminal narrowing. IMPRESSION: 1. Postoperative changes in the cervical spine with artifact from the hardware. No acute osseous abnormality is seen. 2. Multilevel spinal canal and foraminal stenosis as described above. 3. Multiple small focal areas of T2 hyperintensity in the spinal cord. This could be from a chronic spondylitic myelopathy or possibly a demyelinating process. Dictated by: Dictated on workstation # [id number]
== END ==
LOC: RAD 08:13
PROVIDERS: ATTEND Family Medicine
DX: M25.78 Osteophyte, vertebrae (principal); M48.02 Spinal stenosis, cervical region; M48.03 Spinal stenosis, cervicothoracic region
CPT/HCPCS: 72141